=== PATIENT | male | born 1970 | race Two or more races ===

== ENCOUNTER 2018-03-24 09:07 | Day surgery (SDC) | payer OTHER ==
[2018-03-24] MEDS ORDERED: MIRALAX17 GM PO (14:17)
[2018-03-24] MEDS ORDERED: ULTRAM50 MG PO (14:17)
[2018-03-24] MEDS ORDERED: NEURONTIN300 MG PO (14:17)
[2018-03-24] MEDS ORDERED: ZOFRAN ODT4 MG PO (14:17)
[2018-03-24] MEDS ORDERED: TYLENOL EXTRA500 MG PO (14:17)
[2018-03-24] MEDS ORDERED: AMOXICILLIN875 MG PO (15:30)
== END 2018-03-24 17:40 | disposition home or self-care (01) ==
LOC: CIR.AMB 09:07
DX: K40.90 Unilateral inguinal hernia, without obstruction or gangrene, not specified as recurrent (principal)

== ENCOUNTER 2018-04-20 06:57 | Emergency (ER) | payer OTHER ==
[~2018-04-20] VITALS: Ht 177.8 cm; Wt 75.7 kg
[~2018-04-20 06:57] MED LIST: AMOXICILLIN875 MG PO; MIRALAX17 GM PO; NEURONTIN300 MG PO; TYLENOL EXTRA500 MG PO; ULTRAM50 MG PO; ZOFRAN ODT4 MG PO
[2018-04-20] MEDS ORDERED: COZAAR50 MG PO (07:22)
== END 2018-04-20 21:06 | disposition home or self-care (01) ==
LOC: ER 06:57
DX: I16.0 Hypertensive urgency (principal); I10 Essential (primary) hypertension; I31.3 Pericardial effusion (noninflammatory)